=== PATIENT | male | born 1980 | race Caucasian/White ===

== ENCOUNTER 2025-04-10 16:16 | Outpatient (REF) | payer BC, SELFPAY ==
[2025-04-10 19:49] LABS: ALT 54 U/L (16-63); AST 26 U/L (15-37); Albumin 4.6 g/dL (3.4-5.0); Alkaline Phosphatase 61 U/L (46-116); Anion Gap 10.2 mmol/L (3-11); BUN 17 mg/dL (7-18); Bilirubin, Total 0.9 mg/dL (0.2-1.0); CO2 25.8 mmol/L (21.0-32.0); Calcium 9.5 mg/dL (8.5-10.1); Calculated LDL 166 mg/dL (<100); Chloride 103 mmol/L (98-107); Cholesterol 257 mg/dL (<200); Estimated GFR 76.95 (mL/min/1.73m2); Glucose 89 mg/dL (74-106); HDL Cholesterol 65 mg/dL (>or=40); Potassium 3.9 mmol/L (3.5-5.1); Sodium 139 mmol/L (136-145); Total Protein 7.5 g/dL (6.4-8.2); Triglyceride 131 mg/dL (<150)
== END 2025-04-10 16:17 | disposition home or self-care (01) ==
LOC: NCHCN 16:16
PROVIDERS: PCP Physician Assistant Medical; Visit Provider Nurse Practitioner Family
DX: Z13.220 Encounter for screening for lipoid disorders (principal); Z13.1 Encounter for screening for diabetes mellitus
CPT/HCPCS: 80053; 80061